=== PATIENT | female | born 1995 | race Asian ===

== ENCOUNTER 2019-08-30 00:27 | Emergency (ER) | payer OTHER ==
--- NOTE | 2019-08-30 01:07 | ED ---
HPI Chest Pain - HPI Summary HPI Summary: 23-year-old female with history of tricuspid valve insufficiency and GERD presenting to [facility] for evaluation of left anterior chest pain radiating into the left axillary region initially onset 08/28/2019. She reports she has been experiencing short, intermittent episodes of sharp/stabbing pain lasting only for a few seconds before subsiding and leaving a mild burning sensation. The episodes have become more frequent since onset. Currently, the pains is rated 1/ 10 in severity. She has not taken any medications for the pain. She has not experienced this pain before, and it is different from the acid reflux symptoms she has. She denies any fevers or SOB. She had a mild cough and sore throat 4 days ago that she relieved with medications. She spoke with her PCP who advised her to come into the ED. No known exposure to COVID19. Past medical history additionally includes rheumatoid arthritis, psoriasis. Nonsmoker, no alcohol or substance use. Family history of hypertension and cardiac disease. Medications reviewed, on immunosuppressants. Allergies noted. - History of Current Complaint Chief Complaint: EDChestPainROMI Time Seen by Provider: 08/30/19 00:58 Hx Obtained From: Patient Onset/Duration: Started Days Ago, Still Present Timing: Intermittent, Lasting Seconds Initial Severity: Moderate Current Severity: Mild Pain Intensity: 1 Pain Scale Used: 0-10 Numeric Chest Pain Location: Left Anterior Chest Pain Radiates: Yes Chest Pain Radiates To:: Other - left axilla Character: Burning, Sharp/Stabbing Aggravating Factor(s): Nothing Alleviating Factor(s): Nothing Associated Signs and Symptoms: Positive: Chest Pain, Cough - mild a few days ago but resolved, Other: - sore throat a few days ago but resolved. Negative: Shortness of Breath, Fever - Allergy/Home Medications Allergies/Adverse Reactions: Allergies Allergy/AdvReac Type Severity Reaction Status Date / Time immunizations Allergy Unknown Uncoded 09/23/15 18:44 Reaction Details PMH/Surg Hx/FS Hx/Imm Hx Endocrine/Hematology History: Reports: Other Endocrine/Hematological Disorders - RA Denies: Hx Diabetes Cardiovascular History: Reports: Other Cardiovascular Problems/Disorders - tricuspid valve insufficiency Denies: Hx Hypertension, Hx Pacemaker/ICD GI History: Reports: Hx Gastroesophageal Reflux Disease History: Denies: Hx Renal Disease Psychiatric History: Denies: Hx Panic Disorder - Surgical History Surgical History: None Surgery Procedure, Year, and Place: none Infectious Disease History: No Infectious Disease History: Denies: Traveled Outside the [place] in Last 30 Days - Family History Known Family History: Positive: Cardiac Disease, Hypertension - Social History Alcohol Use: None Hx Substance Use: No Substance Use Type: Reports: None Hx Tobacco Use: No Smoking Status (MU): Never Smoked Tobacco - Additional Comments History Additional Comments: tricuspid valve insufficiency, RA, GERD, psoriasis Review of Systems Negative: Fever Positive: Sore Throat - a few days ago but resolved Positive: Chest Pain - left anterior radiating into the elft axilla Positive: Cough - mild a few days ago but resolved. Negative: Shortness Of Breath All Other Systems Reviewed And Are Negative: Yes Physical Exam - Summary Physical Exam Summary: General: Well-developed, Well-nourished female. No acute distress. Mildly anxious appearing. HEENT: Normocephalic, Atraumatic. Eyes: Conjuctiva normal, PERRL. Oropharynx: Clear, mucous membranes moist, (-) exudates. Neck: Soft, FROM, (-) lymphadenopathy, (-) thyromegaly, (-) JVD. Cardiovascular: Normal sinus rhythm, (-) murmur. Point tenderness of palpation of the left chest wall. Lungs: Clear to auscultation bilaterally (-) wheezes, (-) rales, (-) rhonchi. Abdomen: Soft, non-tender, non-distended, (-) organomegaly, normal bowel sounds. Back: (-) CVA tenderness Extremities: No edema. Skin: Warm, dry, (-) rash. Neuro: Alert and oriented x3, moves all extremities equally. No ataxia. No gait disturbance. No sensory deficit. Normal strength, normal sensation. Psychiatric: Mood normal, affect normal. Triage Information Reviewed: Yes Vital Signs On Initial Exam: Initial Vitals Temp Pulse Resp BP Pulse Ox 99.2 F 85 16 130/96 99 08/30/19 00:28 08/30/19 00:28 08/30/19 00:28 08/30/19 00:28 08/30/19 00:28 Vital Signs Reviewed: Yes Procedures - Sedation Patient Received Moderate/Deep Sedation with Procedure: No Diagnostics - Vital Signs Vital Signs Temp Pulse Resp BP Pulse Ox 08/30/19 00:28 99.2 F 85 16 130/96 99 - Laboratory Result Diagrams: 08/30/19 01:41 08/30/19 01:41 Lab Statement: Any lab studies that have been ordered have been reviewed, and results considered in the medical decision making process. - Radiology CXR Radiology Interpretation Completed By: ED Physician Summary of Radiographic Findings: No infiltrate. No pleural effusion. This film was reviewed and interpreted by Dr. Chand, pending official read. - EKG 0129 Cardiac Rate: NL - 77 BPM EKG Rhythm: Sinus Rhythm Summary of EKG Findings: EKG at 0129 reveals normal sinus rhythm with rate of 77 BPM, no acute changes, no ischemic changes. This EKG was reviewed and interpreted by Dr. Chand. Re-Evaluation - Re-Evaluation First Eval Re-Evaluation Time: 02:45 Comment: I discussed all results. Discussed all symptoms that warrant return to the ED. Chest Pain Course/Dx - Course Course Of Treatment: 23-year-old female presents from home with chest pain. She states she's been having short intermittent bouts of chest pain. Describes them as sharp. Never had anything like this before. Describes in her left upper chest and under her left arm. She does have a history of reflux does not feel like that. No fevers. No cough or shortness of breath. She doesn't history of rheumatoid arthritis. Or possibly psoriatic arthritis. Was sent here by her physician for further workup. Patient requests covid testing. No significant findings on physical exam. She does have point tenderness in her left anterior chest wall. Workup essentially negative. Covid results pending. Patient discharged home with viral syndrome. Advised plenty of fluids and rest. Ibuprofen and Tylenol as needed. Follow-up with PCP. Follow-up sooner for any worsening symptoms. - Diagnoses Provider Diagnoses: Chest pain Discharge ED - Sign-Out/Discharge Documenting (check all that apply): Patient Departure - Patient will be discharged home. - Discharge Plan Condition: Stable Disposition: HOME Patient Education Materials: Chest Pain (DC) Forms: COVID-19 Tested & Isolation Referrals: [facility] [Outside] - 3 Days Additional Instructions: Follow up with your primary care provider in 2-3 days. Return to the emergency department for any new or worsening symptoms. - Billing Disposition and Condition Condition: STABLE Disposition: Home - Attestation Statements Document Initiated by Scribe: Yes Documenting Scribe: Poppy Condon Provider For Whom Scribe is Documenting (Include Credential): Mihaela Chand MD Scribe Attestation: I, Poppy Condon, scribed for Mihaela Chand MD on 08/30/19 at 0559. Scribe Documentation Reviewed: Yes Provider Attestation: The documentation as recorded by the Poppy kaufman accurately reflects the service I personally performed and the decisions made by me, Mihaela Chand MD Status of Scribe Document: Viewed
[2019-08-30 01:52] LABS: ABS Eosinophils 0.1 10^3/ul (0-0.6); ABS Lymphocytes 1.8 10^3/ul (1.0-4.8); ABS Monocytes 0.7 10^3/ul (0-0.8); Eosinophil % 0.6 %; Hematocrit 38 % (35-47); Hemoglobin 12.7 g/dL (12.0-16.0); Lymphocyte % 20.7 %; Mean Corpuscular HGB Conc 34 g/dL (31-36); Mean Corpuscular Hemoglobin 31 pg (27-31); Mean Corpuscular Volume 91 fL (80-97); Mean Platelet Volume 8.3 fL (7.4-10.4); Nucleated Red Blood Cells % 0.1; Platelet Count 212 10^3/uL (150-450); Red Blood Count 4.12 10^6 /uL (3.70-4.87); Red Cell Distribution Width 15 % (10-15); White Blood Count 8.7 10^3/uL (3.5-10.8)
[2019-08-30 02:03] LABS: INR 0.96 (0.82-1.09)
[2019-08-30 02:10] LABS: ALT 13 U/L (7-52); AST 17 U/L (13-39); Albumin 3.8 g/dL (3.2-5.2); Albumin/Globulin Ratio 1.5 (1-3); Alkaline Phosphatase 40 U/L (34-104); Anion Gap 6 mmol/L (2-11); BUN/Creatinine Ratio 30.9 (8-20); Blood Urea Nitrogen 17 mg/dL (6-24); C Reactive Protein < 1.00 mg/L (<8.01); CO2 Carbon Dioxide 26 mmol/L (22-32); Chloride 106 mmol/L (101-111); EGFR African American 165.7 (>60); Globulin 2.5 g/dL (2-4); Glucose 92 mg/dL (70-100); Potassium 3.5 mmol/L (3.5-5.0); Sodium 138 mmol/L (135-145); Total Protein 6.3 g/dL (6.4-8.9)
[2019-08-30 02:17] LABS: HCG Pregnancy 0.86 mIU/mL
[2019-08-30 02:32] LABS: TSH (Thyroid Stimulating Horm) 2.93 mcIU/mL (0.34-5.60)
[2019-08-30 02:51] VITALS: BP 102/74
[2019-08-30 02:57] LABS: Erythrocyte Sed Rate 10 mm/Hr (0-19)
== END 2019-08-30 02:47 | disposition home or self-care (01) ==
LOC: ED 00:27
DX: R07.9 Chest pain, unspecified (principal); R05 Cough; J02.9 Acute pharyngitis, unspecified; K21.9 Gastro-esophageal reflux disease without esophagitis
CPT/HCPCS: 36415; 71045; 80053; 83605; 84443; 84484; 84702; 85025; 85379; 85610; 85652; 86140; 93005; 99282